=== PATIENT | male | born 1980 | race Caucasian/White ===

== ENCOUNTER 2017-08-06 18:40 | Inpatient (IN) | payer MEDICAID, OTHER ==
[~2017-08-06] VITALS: Ht 165.1 cm; Wt 74.8 kg
[~2017-08-06 18:40] MED LIST: DIVA500T52 PO; METF10002 PO; OMEP20 PO; SIMV10TA2 PO; VITAD1000 PO; ZIPR60CA2 PO
[2017-08-06] MEDS ORDERED: ChlorproMAZINE HCL 100 MG TABLET PO PRN (19:30)
[2017-08-06] MEDS ORDERED: LORazepam 2 MG TABLET PO PRN (19:30)
[2017-08-06] MEDS ORDERED: PNEUMOCOCCAL VACCINE POLYVALENT 0.5 ML VIAL [PPSV23] IM ONE (20:30)
[2017-08-06 20:39] VITALS: BP 116/80
[2017-08-06] MEDS ORDERED: INFLUENZA VIRUS VACCINE QVS 2017-18 (3YR+)/PF 60 MCG/0.5 ML SYRINGE IM ONE (20:45)
[2017-08-06 21:32] LABS: GLUCOMETER DEV NAME(LOC) BV2N3; GLUCOSE,POINT OF CARE 455 MG/DL (70-110)
[2017-08-06] MEDS: DIVALPROEX SODIUM 500 MG ER TABLET PO SCH (21:39)
[2017-08-06] MEDS ORDERED: GLUCAGON,HUMAN RECOMBINANT 1 MG VIAL IM PRN (21:45)
[2017-08-06] MEDS ORDERED: DEXTROSE 50%-WATER 25 GM/50 ML SYRINGE IVP PRN (21:45)
[2017-08-06] MEDS ORDERED: INSULIN LISPRO 100 UNITS/ML SQ PRN (21:45)
[2017-08-06] MEDS ORDERED: INSULIN LISPRO 100 UNITS/ML SQ ONE (21:45)
[2017-08-06 22:57] LABS: GLUCOMETER DEV NAME(LOC) BV2N3; GLUCOSE,POINT OF CARE 419 MG/DL (70-110)
[2017-08-07 00:01] VITALS: BP 130/70
[2017-08-07] MEDS: ZOLPIDEM TARTRATE 5 MG TABLET PO PRN ×2 (00:17→20:32)
[2017-08-07 05:47] LABS: GLUCOMETER DEV NAME(LOC) BV2N3; GLUCOSE,POINT OF CARE 265 MG/DL (70-110)
[2017-08-07] MEDS: INSULIN LISPRO 100 UNITS/ML SQ PRN ×4 (06:58→20:52)
[2017-08-07] MEDS: ZIPRASIDONE HCL 60 MG CAPSULE PO SCH ×2 (06:59→16:50)
[2017-08-07] MEDS ORDERED: MetFORMIN HCL 500 MG TABLET PO SCH (07:00)
[2017-08-07 08:03] LABS: BASOPHILS % (AUTO) 0.5 % (0.0-2.0); EOSINOPHILS % (AUTO) 0.8 % (1.0-6.0); HEMOGLOBIN 15.4 g/dL (13.5-17.5); LYMPHOCYTES # (AUTO) 2.2 K/uL (1.0-4.8); LYMPHOCYTES % (AUTO) 39.1 % (22.0-44.0); MEAN CORPUSCULAR HGB CONC 35.1 G/dL (31.0-37.0); MEAN CORPUSCULAR VOLUME 85 fL (80-100); MONOCYTES # (AUTO) 0.5 K/uL (0.1-1.0); MONOCYTES % (AUTO) 8.8 % (2.0-9.0); NEUTROPHILS # (AUTO) 2.9 K/uL (1.8-7.7); NEUTROPHILS % (AUTO) 50.8 % (40.0-70.0); PLATELET COUNT (AUTO) 181 K/uL (150-450); RED BLOOD CELL COUNT(AUTO) 5.14 MIL/uL (4.50-5.90); RED CELL DISTRIBUTION WIDTH 13.3 % (11.5-14.5)
[2017-08-07 08:11] LABS: HEMOGLOBIN A1C 10.7 % (4.5-6.2)
[2017-08-07 08:33] LABS: ALANINE AMINOTRANSFERASE 14 U/L (12-78); ALBUMIN 3.4 g/dL (3.4-5.0); ALKALINE PHOSPHATASE 61 U/L (46-116); ANION GAP 6 mmol/L (8-16); ASPARTATE AMINOTRANSFERASE 12 U/L (15-37); BILIRUBIN,TOTAL 0.4 mg/dL (0.1-1.0); CALCIUM, TOTAL 8.8 mg/dL (8.8-10.5); CARBON DIOXIDE 32 mmol/L (22-29); CHLORIDE 97 mmol/L (98-107); CHOL/HDL RATIO 4.9 (4.2-7.3); CHOLESTEROL 214 mg/dL (131-200); CREATININE 0.78 mg/dL (0.60-1.30); FREE T4 (FREE THYROXINE) 0.92 ng/dL (0.76-1.46); GLOMERULAR FILTR. RATE CALC > 60 mL/min (>60); GLUCOSE,RANDOM 374 mg/dL (70-110); HDL CHOLESTEROL 44 mg/dL (40-60); LDL CHOL (CALC.) 138 mg/dL (0-130); POTASSIUM 3.4 mmol/L (3.5-5.1); SODIUM SERUM 135 mmol/L (136-145); TOTAL PROTEIN, SERUM 7.4 g/dL (6.4-8.2); TRIGLYCERIDES 162 mg/dL (15-150); UREA NITROGEN, BLOOD 7 mg/dL (7-18)
[2017-08-07] MEDS: OMEPRAZOLE 20 MG CAPSULE PO SCH (08:55)
[2017-08-07] MEDS ORDERED: POTASSIUM CHLORIDE 20 MEQ ER TABLET PO ONE (09:00)
[2017-08-07 09:08] VITALS: BP 113/77
[2017-08-07] MEDS: OMEGA-3/DHA/EPA/FISH OIL 1,000 MG CAPSULE PO SCH (09:45)
[2017-08-07 11:22] LABS: GLUCOMETER DEV NAME(LOC) BV2N3; GLUCOSE,POINT OF CARE 270 MG/DL (70-110)
[2017-08-07 16:19] VITALS: BP 122/74
[2017-08-07 16:48] LABS: GLUCOMETER DEV NAME(LOC) BV2N3; GLUCOSE,POINT OF CARE 315 MG/DL (70-110)
[2017-08-07] MEDS: GlipiZIDE 10 MG TABLET PO SCH (16:50)
[2017-08-07] MEDS: MetFORMIN HCL 500 MG TABLET PO SCH (16:50)
[2017-08-07] MEDS: DIVALPROEX SODIUM 500 MG ER TABLET PO SCH (20:32)
[2017-08-07] MEDS: SIMVASTATIN 10 MG TABLET PO SCH (20:40)
[2017-08-07] MEDS: INSULIN GLARGINE,HUM.REC.ANLOG 100 UNITS/ML SQ SCH (20:51)
[2017-08-07 21:12] LABS: GLUCOMETER DEV NAME(LOC) BV2N3; GLUCOSE,POINT OF CARE 221 MG/DL (70-110)
[2017-08-08 04:38] VITALS: BP 116/78
[2017-08-08] MEDS: INSULIN LISPRO 100 UNITS/ML SQ PRN ×4 (06:20→21:10)
[2017-08-08] MEDS: MetFORMIN HCL 500 MG TABLET PO SCH ×2 (06:43→17:06)
[2017-08-08] MEDS: ZIPRASIDONE HCL 60 MG CAPSULE PO SCH ×2 (06:44→17:06)
[2017-08-08] MEDS: GlipiZIDE 10 MG TABLET PO SCH ×2 (06:44→16:29)
[2017-08-08 08:18] VITALS: BP 112/73
[2017-08-08 08:22] VITALS: BP 112/73
[2017-08-08] MEDS: OMEGA-3/DHA/EPA/FISH OIL 1,000 MG CAPSULE PO SCH (08:52)
[2017-08-08] MEDS: OMEPRAZOLE 20 MG CAPSULE PO SCH (08:52)
[2017-08-08 09:00] LABS: POTASSIUM 3.8 mmol/L (3.5-5.1)
[2017-08-08] MEDS ORDERED: BENZOCAINE/MENTHOL LOZENGE MM PRN (09:30)
[2017-08-08] MEDS ORDERED: ONDANSETRON HCL 4 MG TABLET PO PRN (09:30)
[2017-08-08] MEDS ORDERED: CloNIDine HCL 0.1 MG TABLET PO PRN (09:30)
[2017-08-08] MEDS ORDERED: ALBUTEROL SULFATE HFA 90 MCG/PUFF 8 GM INHALER IH PRN (09:30)
[2017-08-08] MEDS ORDERED: LOPERAMIDE HCL 2 MG CAPSULE PO PRN (09:30)
[2017-08-08] MEDS ORDERED: MAG HYDROX/AL HYDROX/SIMETH ES 30 ML SUSPENSION UDCUP PO PRN (09:30)
[2017-08-08] MEDS ORDERED: PETROLATUM,WHITE 71 GM JELLY TP PRN (09:30)
[2017-08-08] MEDS ORDERED: BACITRACIN 28.4 GM OINTMENT TP PRN (09:30)
[2017-08-08] MEDS ORDERED: MAGNESIUM HYDROXIDE SUSPENSION 30 ML UDCUP PO PRN (09:30)
[2017-08-08] MEDS ORDERED: IBUPROFEN 600 MG TABLET PO PRN (09:30)
[2017-08-08] MEDS ORDERED: ACETAMINOPHEN 325 MG TABLET PO PRN (09:30)
[2017-08-08 15:13] LABS: GLUCOMETER DEV NAME(LOC) BV2N3; GLUCOSE,POINT OF CARE 253 MG/DL (70-110)
[2017-08-08 16:08] VITALS: BP 120/81
[2017-08-08 16:27] LABS: GLUCOMETER DEV NAME(LOC) BV2N3; GLUCOSE,POINT OF CARE 252 MG/DL (70-110)
[2017-08-08] MEDS: SIMVASTATIN 10 MG TABLET PO SCH (20:30)
[2017-08-08] MEDS: DIVALPROEX SODIUM 500 MG ER TABLET PO SCH (20:30)
[2017-08-08 20:51] LABS: GLUCOMETER DEV NAME(LOC) BV2N3; GLUCOSE,POINT OF CARE 212 MG/DL (70-110)
[2017-08-08] MEDS: INSULIN GLARGINE,HUM.REC.ANLOG 100 UNITS/ML SQ SCH (21:11)
[2017-08-08] MEDS: ZOLPIDEM TARTRATE 5 MG TABLET PO PRN (21:27)
[2017-08-09 05:17] VITALS: BP 130/86
[2017-08-09] MEDS: GlipiZIDE 10 MG TABLET PO SCH ×2 (05:27→17:00)
[2017-08-09 05:48] LABS: GLUCOMETER DEV NAME(LOC) BV2N3; GLUCOSE,POINT OF CARE 161 MG/DL (70-110)
[2017-08-09] MEDS: INSULIN LISPRO 100 UNITS/ML SQ PRN ×4 (06:42→21:00)
[2017-08-09] MEDS: ZIPRASIDONE HCL 60 MG CAPSULE PO SCH ×2 (06:45→17:00)
[2017-08-09] MEDS: MetFORMIN HCL 500 MG TABLET PO SCH ×2 (06:45→17:00)
[2017-08-09 08:27] VITALS: BP 109/70
[2017-08-09] MEDS ORDERED: FluPHENAZine DECANOATE 25 MG/ML IM SCH (09:00)
[2017-08-09] MEDS: OMEGA-3/DHA/EPA/FISH OIL 1,000 MG CAPSULE PO SCH (09:41)
[2017-08-09] MEDS: OMEPRAZOLE 20 MG CAPSULE PO SCH (09:41)
[2017-08-09] MEDS: DOCUSATE SODIUM 100 MG CAPSULE PO SCH (09:41)
[2017-08-09 11:33] LABS: GLUCOMETER DEV NAME(LOC) BV2N3; GLUCOSE,POINT OF CARE 167 MG/DL (70-110)
[2017-08-09 16:36] VITALS: BP 113/65
[2017-08-09 17:06] LABS: GLUCOMETER DEV NAME(LOC) BV2N3; GLUCOSE,POINT OF CARE 239 MG/DL (70-110)
[2017-08-09 20:42] LABS: GLUCOMETER DEV NAME(LOC) BV2N3; GLUCOSE,POINT OF CARE 212 MG/DL (70-110)
[2017-08-09] MEDS: SIMVASTATIN 10 MG TABLET PO SCH (20:56)
[2017-08-09] MEDS: DIVALPROEX SODIUM 500 MG ER TABLET PO SCH (20:57)
[2017-08-09] MEDS: ZOLPIDEM TARTRATE 5 MG TABLET PO PRN (20:57)
[2017-08-09] MEDS: INSULIN GLARGINE,HUM.REC.ANLOG 100 UNITS/ML SQ SCH (21:00)
[2017-08-10 06:12] LABS: GLUCOMETER DEV NAME(LOC) BV2N3; GLUCOSE,POINT OF CARE 115 MG/DL (70-110)
[2017-08-10 06:24] VITALS: BP 110/69
[2017-08-10] MEDS: GlipiZIDE 10 MG TABLET PO SCH ×2 (06:48→16:08)
[2017-08-10] MEDS: ZIPRASIDONE HCL 60 MG CAPSULE PO SCH ×2 (06:48→16:08)
[2017-08-10] MEDS: MetFORMIN HCL 500 MG TABLET PO SCH ×2 (06:48→16:08)
[2017-08-10 08:19] VITALS: BP 116/82
[2017-08-10] MEDS: DOCUSATE SODIUM 100 MG CAPSULE PO SCH (09:29)
[2017-08-10] MEDS: OMEGA-3/DHA/EPA/FISH OIL 1,000 MG CAPSULE PO SCH (09:29)
[2017-08-10] MEDS: OMEPRAZOLE 20 MG CAPSULE PO SCH (09:29)
[2017-08-10 11:27] LABS: GLUCOMETER DEV NAME(LOC) BV2N3; GLUCOSE,POINT OF CARE 124 MG/DL (70-110)
[2017-08-10 16:26] VITALS: BP 116/65
[2017-08-10 16:52] LABS: GLUCOMETER DEV NAME(LOC) BV2N3; GLUCOSE,POINT OF CARE 194 MG/DL (70-110)
[2017-08-10] MEDS: INSULIN LISPRO 100 UNITS/ML SQ PRN ×2 (17:04→20:27)
[2017-08-10] MEDS: DIVALPROEX SODIUM 500 MG ER TABLET PO SCH (20:13)
[2017-08-10] MEDS: SIMVASTATIN 10 MG TABLET PO SCH (20:13)
[2017-08-10 20:33] LABS: GLUCOMETER DEV NAME(LOC) BV2N3; GLUCOSE,POINT OF CARE 148 MG/DL (70-110)
[2017-08-10] MEDS: INSULIN GLARGINE,HUM.REC.ANLOG 100 UNITS/ML SQ SCH (21:03)
[2017-08-11 03:45] VITALS: BP 114/69
[2017-08-11 06:08] LABS: GLUCOMETER DEV NAME(LOC) BV2N3; GLUCOSE,POINT OF CARE 225 MG/DL (70-110)
[2017-08-11] MEDS: MetFORMIN HCL 500 MG TABLET PO SCH (06:49)
[2017-08-11] MEDS: GlipiZIDE 10 MG TABLET PO SCH (06:49)
[2017-08-11] MEDS: INSULIN LISPRO 100 UNITS/ML SQ PRN (06:50)
[2017-08-11] MEDS: OMEGA-3/DHA/EPA/FISH OIL 1,000 MG CAPSULE PO SCH (08:03)
[2017-08-11] MEDS: OMEPRAZOLE 20 MG CAPSULE PO SCH (08:03)
[2017-08-11] MEDS: DOCUSATE SODIUM 100 MG CAPSULE PO SCH (08:03)
[2017-08-11 08:04] VITALS: BP 119/77
[2017-08-11] MEDS ORDERED: INSLAN SQ (08:17)
[2017-08-11] MEDS ORDERED: GLIP10 PO (08:17)
[2017-08-11] MEDS ORDERED: DIVA500T52 PO (08:17)
[2017-08-11] MEDS ORDERED: METF500T4 PO (08:18)
[2017-08-11] MEDS ORDERED: OMEG-135 PO (08:18)
[2017-08-11 08:31] LABS: BASOPHILS % (AUTO) 0.3 % (0.0-2.0); EOSINOPHILS % (AUTO) 0.3 % (1.0-6.0); HEMOGLOBIN 15.7 g/dL (13.5-17.5); LYMPHOCYTES # (AUTO) 2.4 K/uL (1.0-4.8); LYMPHOCYTES % (AUTO) 33.3 % (22.0-44.0); MEAN CORPUSCULAR HEMOGLOBIN 30.5 pg (26.0-34.0); MEAN CORPUSCULAR HGB CONC 35.7 G/dL (31.0-37.0); MEAN CORPUSCULAR VOLUME 86 fL (80-100); MONOCYTES # (AUTO) 0.4 K/uL (0.1-1.0); MONOCYTES % (AUTO) 5.7 % (2.0-9.0); NEUTROPHILS # (AUTO) 4.3 K/uL (1.8-7.7); NEUTROPHILS % (AUTO) 60.4 % (40.0-70.0); PLATELET COUNT (AUTO) 206 K/uL (150-450); RED BLOOD CELL COUNT(AUTO) 5.14 MIL/uL (4.50-5.90); RED CELL DISTRIBUTION WIDTH 12.9 % (11.5-14.5)
[2017-08-11 08:33] LABS: HEMATOCRIT 45.9 % (41-53)
[2017-08-11 09:30] LABS: ALBUMIN 3.5 g/dL (3.4-5.0); BILIRUBIN,TOTAL 0.4 mg/dL (0.1-1.0); TOTAL PROTEIN, SERUM 7.3 g/dL (6.4-8.2)
[2017-08-11 09:31] LABS: BILIRUBIN,DIRECT 0.2 mg/dL (0.00-0.20)
== END 2017-08-11 10:30 | disposition home or self-care (01) | DRG 750 ==
LOC: B2S 18:40
PROVIDERS: ADMIT Psychiatry & Neurology Psychiatry; ATTEND Psychiatry & Neurology Psychiatry
DX: F20.0 Paranoid schizophrenia (principal); F72 Severe intellectual disabilities; E11.65 Type 2 diabetes mellitus with hyperglycemia; F15.20 Other stimulant dependence, uncomplicated; E87.1 Hypo-osmolality and hyponatremia; G40.909 Epilepsy, unspecified, not intractable, without status epilepticus; K21.9 Gastro-esophageal reflux disease without esophagitis; E78.1 Pure hyperglyceridemia; E78.5 Hyperlipidemia, unspecified; E87.6 Hypokalemia; G47.00 Insomnia, unspecified; F12.10 Cannabis abuse, uncomplicated; Z28.21 Immunization not carried out because of patient refusal; Z91.14 Patient's other noncompliance with medication regimen; Z91.19 Patient's noncompliance with other medical treatment and regimen; Z98.2 Presence of cerebrospinal fluid drainage device; Z56.0 Unemployment, unspecified; Z79.899 Other long term (current) drug therapy; Z82.49 Family history of ischemic heart disease and other diseases of the circulatory system; Z83.3 Family history of diabetes mellitus
CPT/HCPCS: 82962; 83036; 84132; 84295; 84439; 84443; J1815; J2680

== ENCOUNTER 2018-01-19 11:00 | Inpatient (IN) | payer MEDICAID ==
[~2018-01-19] VITALS: Ht 165.1 cm; Wt 85.3 kg
[~2018-01-19 11:00] MED LIST changes: +GLIP10 PO; +INSLAN SQ; +METF-960 PO; -METF10002 PO; +OMEG-135 PO; -OMEP20 PO; -VITAD1000 PO; -ZIPR60CA2 PO
[2018-01-19 11:46] VITALS: BP 139/92
[2018-01-19] MEDS ORDERED: ChlorproMAZINE HCL 100 MG TABLET PO PRN (12:00)
[2018-01-19] MEDS ORDERED: PNEUMOCOCCAL VACCINE POLYVALENT 0.5 ML VIAL [PPSV23] IM ONE (14:00)
[2018-01-19] MEDS: INSULIN LISPRO 100 UNITS/ML SQ PRN ×4 (14:44→21:00)
[2018-01-19] MEDS ORDERED: GLUCAGON,HUMAN RECOMBINANT 1 MG VIAL IM PRN (14:45)
[2018-01-19] MEDS ORDERED: HydrOXYzine PAMOATE 50 MG CAPSULE PO PRN (15:00)
[2018-01-19] MEDS ORDERED: MAG HYDROX/AL HYDROX/SIMETH ES 30 ML SUSPENSION UDCUP PO PRN (15:00)
[2018-01-19] MEDS ORDERED: TUBERCULIN, PURIFIED PROTEIN DERIVATIVE 5 TU/0.1 ML SYG ID ONE (15:00)
[2018-01-19] MEDS ORDERED: PROMETHAZINE HCL 25 MG TABLET PO PRN (15:00)
[2018-01-19] MEDS ORDERED: MAGNESIUM HYDROXIDE SUSPENSION 30 ML UDCUP PO PRN (15:00)
[2018-01-19] MEDS ORDERED: GuaiFENesin/D-METHORPHAN [SUGAR-FREE] 200-20MG/10 ML SYRUP UDCUP PO PRN (15:00)
[2018-01-19] MEDS ORDERED: ACETAMINOPHEN 325 MG TABLET PO PRN (15:00)
[2018-01-19] MEDS ORDERED: LOPERAMIDE HCL 2 MG CAPSULE PO PRN (15:00)
[2018-01-19 16:00] VITALS: BP 140/88
[2018-01-19] MEDS: THIAMINE HCL 100 MG TABLET PO SCH (16:44)
[2018-01-19] MEDS: MetFORMIN HCL 500 MG TABLET PO SCH (16:44)
[2018-01-19] MEDS: LORazepam 2 MG TABLET PO PRN (16:44)
[2018-01-19] MEDS: GlipiZIDE 10 MG TABLET PO SCH (16:44)
[2018-01-19] MEDS: DiphenhydrAMINE HCL 25 MG CAPSULE PO SCH (20:47)
[2018-01-19] MEDS: DIVALPROEX SODIUM 500 MG ER TABLET PO SCH (20:48)
[2018-01-19] MEDS: FluPHENAZine HCL 5 MG TABLET PO SCH (20:48)
[2018-01-19] MEDS ORDERED: DIVALPROEX SODIUM 500 MG ER TABLET PO SCH (21:00)
[2018-01-19] MEDS: INSULIN GLARGINE,HUM.REC.ANLOG 100 UNITS/ML SQ SCH (21:00)
[2018-01-19] MEDS ORDERED: IBUPROFEN 600 MG TABLET PO PRN (21:15)
[2018-01-19] MEDS ORDERED: ONDANSETRON HCL 4 MG TABLET PO PRN (21:15)
[2018-01-19] MEDS ORDERED: CloNIDine HCL 0.1 MG TABLET PO PRN (21:15)
[2018-01-19] MEDS ORDERED: BENZOCAINE/MENTHOL LOZENGE MM PRN (21:15)
[2018-01-19] MEDS ORDERED: BACITRACIN 28.4 GM OINTMENT TP PRN (21:15)
[2018-01-19] MEDS ORDERED: PETROLATUM,WHITE 71 GM JELLY TP PRN (21:15)
[2018-01-19] MEDS ORDERED: ALBUTEROL SULFATE HFA 90 MCG/PUFF 8 GM INHALER IH PRN (21:15)
[2018-01-20 04:45] LABS: GLUCOMETER DEV NAME(LOC) BV3N5; GLUCOSE,POINT OF CARE 325 MG/DL (70-110)
[2018-01-20 06:00] LABS: GLUCOMETER DEV NAME(LOC) BV3N5; GLUCOSE,POINT OF CARE 260 MG/DL (70-110)
[2018-01-20 06:24] VITALS: BP 136/81
[2018-01-20] MEDS: GlipiZIDE 10 MG TABLET PO SCH ×2 (06:40→16:08)
[2018-01-20] MEDS: MetFORMIN HCL 500 MG TABLET PO SCH ×2 (06:40→16:49)
[2018-01-20] MEDS: INSULIN LISPRO 100 UNITS/ML SQ PRN ×3 (06:41→21:01)
[2018-01-20 08:05] VITALS: BP 125/77
[2018-01-20] MEDS: FOLIC ACID 1 MG TABLET PO SCH (08:14)
[2018-01-20] MEDS: MULTIVITAMINS WITH MINERALS, THERAPEUTIC TABLET PO SCH (08:14)
[2018-01-20] MEDS: THIAMINE HCL 100 MG TABLET PO SCH ×2 (08:14→16:08)
[2018-01-20 08:31] LABS: BASOPHILS % (AUTO) 0.7 % (0.0-2.0); EOSINOPHILS % (AUTO) 1.9 % (1.0-6.0); HEMATOCRIT 45.2 % (41-53); LYMPHOCYTES # (AUTO) 2.6 K/uL (1.0-4.8); MEAN CORPUSCULAR HEMOGLOBIN 29.8 pg (26.0-34.0); MEAN CORPUSCULAR HGB CONC 35.5 G/dL (31.0-37.0); MEAN CORPUSCULAR VOLUME 84 fL (80-100); MONOCYTES # (AUTO) 0.4 K/uL (0.1-1.0); MONOCYTES % (AUTO) 7.7 % (2.0-9.0); NEUTROPHILS # (AUTO) 2.3 K/uL (1.8-7.7); NEUTROPHILS % (AUTO) 42.7 % (40.0-70.0); PLATELET COUNT (AUTO) 220 K/uL (150-450); RED BLOOD CELL COUNT(AUTO) 5.37 MIL/uL (4.50-5.90); RED CELL DISTRIBUTION WIDTH 13.2 % (11.5-14.5)
[2018-01-20 08:44] LABS: HEMOGLOBIN A1C 8.5 % (4.5-6.2)
[2018-01-20 09:01] LABS: ALANINE AMINOTRANSFERASE 22 U/L (12-78); ALBUMIN 3.1 g/dL (3.4-5.0); ALKALINE PHOSPHATASE 49 U/L (46-116); ANION GAP 5 mmol/L (8-16); ASPARTATE AMINOTRANSFERASE 14 U/L (15-37); BILIRUBIN,TOTAL 0.3 mg/dL (0.1-1.0); CALCIUM, TOTAL 8.7 mg/dL (8.8-10.5); CARBON DIOXIDE 31 mmol/L (22-29); CHLORIDE 103 mmol/L (98-107); CHOL/HDL RATIO 4.3 (4.2-7.3); CHOLESTEROL 195 mg/dL (131-200); CREATININE 0.68 mg/dL (0.60-1.30); GLOMERULAR FILTR. RATE CALC > 60 mL/min (>60); GLUCOSE,RANDOM 226 mg/dL (70-110); HDL CHOLESTEROL 45 mg/dL (40-60); LDL CHOL (CALC.) 121 mg/dL (0-130); POTASSIUM 3.5 mmol/L (3.5-5.1); SODIUM SERUM 139 mmol/L (136-145); THYROID STIMULATING HORMONE 3.64 uIU/mL (0.36-3.74); TOTAL PROTEIN, SERUM 7.2 g/dL (6.4-8.2); TRIGLYCERIDES 147 mg/dL (15-150); UREA NITROGEN, BLOOD 9 mg/dL (7-18); VALPROIC ACID 58 mcg/mL (50-100)
[2018-01-20 09:07] LABS: AMPHET/METH SCREEN,URINE NEGATIVE (NEGATIVE); BARBITURATE SCREEN, URINE NEGATIVE (NEGATIVE); BENZODIAZEPINES SCREEN,URINE NEGATIVE (NEGATIVE); CANNABINOID SCREEN,URINE NEGATIVE (NEGATIVE); COCAINE SCREEN,URINE NEGATIVE (NEGATIVE); METHADONE SCREEN, URINE NEGATIVE (NEGATIVE); OPIATE SCREEN,URINE NEGATIVE (NEGATIVE)
[2018-01-20 09:09] LABS: PHENCYCLIDINE SCREEN,URINE NEGATIVE (NEGATIVE)
[2018-01-20 09:16] LABS: APPEARANCE,URINE CLEAR (CLEAR); BILIRUBIN,URINE NEGATIVE (NEGATIVE); GLUCOSE, URINE (UA) >=1000 mg/dL (NEGATIVE); KETONES,URINE 15 mg/dL (NEGATIVE); LEUKOCYTE ESTERASE ,URINE NEGATIVE (NEGATIVE); NITRATE,URINE NEGATIVE (NEGATIVE); OCCULT BLOOD,URINE NEGATIVE (NEGATIVE); PH,URINE 6.5 (5.0-8.0); PROTEIN,URINE POS 1+ (NEGATIVE)
[2018-01-20 09:30] LABS: BACTERIA,URINE Rare /HPF (None Seen); RBC,URINE None Seen /HPF (0-2); SQUAMOUS EPITHELIAL CELL,UR Few /LPF (None Seen); WBC,URINE 0-2 /HPF (0-5)
[2018-01-20] MEDS: LORazepam 2 MG TABLET PO PRN ×2 (10:06→16:48)
[2018-01-20 13:25] LABS: GLUCOMETER DEV NAME(LOC) BV3N5; GLUCOSE,POINT OF CARE 242 MG/DL (70-110)
[2018-01-20 16:00] VITALS: BP 111/66
[2018-01-20] MEDS: DiphenhydrAMINE HCL 25 MG CAPSULE PO SCH (20:33)
[2018-01-20] MEDS: DIVALPROEX SODIUM 500 MG ER TABLET PO SCH (20:33)
[2018-01-20] MEDS: FluPHENAZine HCL 5 MG TABLET PO SCH (20:33)
[2018-01-20] MEDS: INSULIN GLARGINE,HUM.REC.ANLOG 100 UNITS/ML SQ SCH (21:03)
[2018-01-21 01:40] LABS: GLUCOMETER DEV NAME(LOC) BV3N5; GLUCOSE,POINT OF CARE 244 MG/DL (70-110)
[2018-01-21 06:11] VITALS: BP 146/86
[2018-01-21] MEDS: GlipiZIDE 10 MG TABLET PO SCH ×2 (06:13→16:54)
[2018-01-21] MEDS: MetFORMIN HCL 500 MG TABLET PO SCH ×2 (06:13→16:48)
[2018-01-21] MEDS: INSULIN LISPRO 100 UNITS/ML SQ PRN ×4 (06:35→20:50)
[2018-01-21 08:05] VITALS: BP 136/84
[2018-01-21] MEDS: MULTIVITAMINS WITH MINERALS, THERAPEUTIC TABLET PO SCH (08:16)
[2018-01-21] MEDS: THIAMINE HCL 100 MG TABLET PO SCH ×2 (08:16→16:48)
[2018-01-21] MEDS: FOLIC ACID 1 MG TABLET PO SCH (08:16)
[2018-01-21 10:58] LABS: GLUCOMETER DEV NAME(LOC) BV3N5; GLUCOSE,POINT OF CARE 132 MG/DL (70-110)
[2018-01-21 15:05] VITALS: BP 129/79
[2018-01-21 15:57] LABS: GLUCOMETER DEV NAME(LOC) BV3N5; GLUCOSE,POINT OF CARE 307 MG/DL (70-110)
[2018-01-21 16:19] LABS: GLUCOMETER DEV NAME(LOC) BV3N5; GLUCOSE,POINT OF CARE 203 MG/DL (70-110)
[2018-01-21 16:43] LABS: GLUCOMETER DEV NAME(LOC) BV3N5; GLUCOSE,POINT OF CARE 177 MG/DL (70-110)
[2018-01-21 16:44] LABS: GLUCOMETER DEV NAME(LOC) BV3N5; GLUCOSE,POINT OF CARE 175 MG/DL (70-110)
[2018-01-21] MEDS: LORazepam 2 MG TABLET PO PRN (16:48)
[2018-01-21 17:35] LABS: GLUCOMETER DEV NAME(LOC) BV3N5; GLUCOSE,POINT OF CARE 217 MG/DL (70-110)
[2018-01-21 17:44] VITALS: BP 129/79
[2018-01-21] MEDS: DIVALPROEX SODIUM 500 MG ER TABLET PO SCH (20:20)
[2018-01-21] MEDS: FluPHENAZine HCL 5 MG TABLET PO SCH (20:20)
[2018-01-21] MEDS: DiphenhydrAMINE HCL 25 MG CAPSULE PO SCH (20:20)
[2018-01-21] MEDS: INSULIN GLARGINE,HUM.REC.ANLOG 100 UNITS/ML SQ SCH (20:50)
[2018-01-21] MEDS: ZOLPIDEM TARTRATE 10 MG TABLET PO PRN (21:10)
[2018-01-21 21:24] LABS: GLUCOMETER DEV NAME(LOC) BV3N5; GLUCOSE,POINT OF CARE 167 MG/DL (70-110)
[2018-01-22 02:59] VITALS: BP 124/72
[2018-01-22 06:24] LABS: GLUCOMETER DEV NAME(LOC) BV3N5; GLUCOSE,POINT OF CARE 153 MG/DL (70-110)
[2018-01-22] MEDS: MetFORMIN HCL 500 MG TABLET PO SCH ×2 (06:27→16:47)
[2018-01-22] MEDS: GlipiZIDE 10 MG TABLET PO SCH ×2 (06:27→16:49)
[2018-01-22] MEDS: INSULIN LISPRO 100 UNITS/ML SQ PRN ×4 (06:47→21:18)
[2018-01-22 08:04] VITALS: BP 119/85
[2018-01-22] MEDS: MULTIVITAMINS WITH MINERALS, THERAPEUTIC TABLET PO SCH (08:17)
[2018-01-22] MEDS: THIAMINE HCL 100 MG TABLET PO SCH ×2 (08:17→17:57)
[2018-01-22] MEDS: FOLIC ACID 1 MG TABLET PO SCH (08:17)
[2018-01-22 11:59] LABS: GLUCOMETER DEV NAME(LOC) BV3N5; GLUCOSE,POINT OF CARE 194 MG/DL (70-110)
[2018-01-22] MEDS ORDERED: BENZTROPINE MESYLATE 2 MG TABLET PO ONE (14:30)
[2018-01-22 16:00] VITALS: BP 135/87
[2018-01-22] MEDS: BENZTROPINE MESYLATE 2 MG TABLET PO SCH (16:48)
[2018-01-22 16:54] LABS: GLUCOMETER DEV NAME(LOC) BV3N5; GLUCOSE,POINT OF CARE 205 MG/DL (70-110)
[2018-01-22 20:09] LABS: GLUCOMETER DEV NAME(LOC) BV3N5; GLUCOSE,POINT OF CARE 180 MG/DL (70-110)
[2018-01-22] MEDS: DIVALPROEX SODIUM 500 MG ER TABLET PO SCH (20:15)
[2018-01-22] MEDS: FluPHENAZine HCL 5 MG TABLET PO SCH (20:15)
[2018-01-22] MEDS: DiphenhydrAMINE HCL 25 MG CAPSULE PO SCH (20:15)
[2018-01-22] MEDS: INSULIN GLARGINE,HUM.REC.ANLOG 100 UNITS/ML SQ SCH (20:51)
[2018-01-22] MEDS ORDERED: DIVALPROEX SODIUM 250 MG ER TABLET PO SCH (21:00)
[2018-01-23 01:42] VITALS: BP 106/66
[2018-01-23 06:10] LABS: GLUCOMETER DEV NAME(LOC) BV3N5; GLUCOSE,POINT OF CARE 165 MG/DL (70-110)
[2018-01-23] MEDS: GlipiZIDE 10 MG TABLET PO SCH ×2 (06:10→16:36)
[2018-01-23] MEDS: MetFORMIN HCL 500 MG TABLET PO SCH ×2 (06:11→16:36)
[2018-01-23] MEDS: INSULIN LISPRO 100 UNITS/ML SQ PRN ×3 (06:36→21:00)
[2018-01-23] MEDS: MULTIVITAMINS WITH MINERALS, THERAPEUTIC TABLET PO SCH (08:03)
[2018-01-23] MEDS: FOLIC ACID 1 MG TABLET PO SCH (08:03)
[2018-01-23] MEDS: THIAMINE HCL 100 MG TABLET PO SCH ×2 (08:03→16:36)
[2018-01-23] MEDS: BENZTROPINE MESYLATE 2 MG TABLET PO SCH ×2 (08:04→16:36)
[2018-01-23 08:05] VITALS: BP 128/74
[2018-01-23 11:49] LABS: GLUCOMETER DEV NAME(LOC) BV3N5; GLUCOSE,POINT OF CARE 120 MG/DL (70-110)
[2018-01-23 16:00] VITALS: BP 136/88
[2018-01-23] MEDS: LORazepam 2 MG TABLET PO PRN (16:36)
[2018-01-23 16:54] LABS: GLUCOMETER DEV NAME(LOC) BV3N5; GLUCOSE,POINT OF CARE 253 MG/DL (70-110)
[2018-01-23] MEDS: DiphenhydrAMINE HCL 25 MG CAPSULE PO SCH (20:54)
[2018-01-23] MEDS: DIVALPROEX SODIUM 500 MG ER TABLET PO SCH (20:55)
[2018-01-23] MEDS: FluPHENAZine HCL 5 MG TABLET PO SCH (20:55)
[2018-01-23] MEDS ORDERED: BENZTROPINE MESYLATE 1 MG TABLET PO SCH (21:00)
[2018-01-23] MEDS: INSULIN GLARGINE,HUM.REC.ANLOG 100 UNITS/ML SQ SCH (21:00)
[2018-01-23 21:08] LABS: GLUCOMETER DEV NAME(LOC) BV3N5; GLUCOSE,POINT OF CARE 145 MG/DL (70-110)
[2018-01-24] MEDS: GlipiZIDE 10 MG TABLET PO SCH ×2 (06:55→16:22)
[2018-01-24] MEDS: MetFORMIN HCL 500 MG TABLET PO SCH ×2 (06:56→16:22)
[2018-01-24] MEDS: INSULIN LISPRO 100 UNITS/ML SQ PRN ×3 (06:57→21:19)
[2018-01-24 07:03] VITALS: BP 120/82
[2018-01-24 07:20] LABS: GLUCOMETER DEV NAME(LOC) BV3N5; GLUCOSE,POINT OF CARE 142 MG/DL (70-110)
[2018-01-24 08:05] VITALS: BP 126/80
[2018-01-24] MEDS: DIVALPROEX SODIUM 500 MG ER TABLET PO SCH ×2 (08:06→21:33)
[2018-01-24] MEDS: MULTIVITAMINS WITH MINERALS, THERAPEUTIC TABLET PO SCH (08:06)
[2018-01-24] MEDS: FOLIC ACID 1 MG TABLET PO SCH (08:06)
[2018-01-24] MEDS: THIAMINE HCL 100 MG TABLET PO SCH ×2 (08:06→16:22)
[2018-01-24 11:23] LABS: GLUCOMETER DEV NAME(LOC) BV3N5; GLUCOSE,POINT OF CARE 107 MG/DL (70-110)
[2018-01-24 16:00] VITALS: BP 115/82
[2018-01-24] MEDS: BENZTROPINE MESYLATE 1 MG TABLET PO SCH (16:22)
[2018-01-24] MEDS: LORazepam 2 MG TABLET PO PRN ×2 (16:22→21:16)
[2018-01-24 17:29] LABS: GLUCOMETER DEV NAME(LOC) BV3N5; GLUCOSE,POINT OF CARE 142 MG/DL (70-110)
[2018-01-24] MEDS: DiphenhydrAMINE HCL 25 MG CAPSULE PO SCH (21:16)
[2018-01-24] MEDS: ZOLPIDEM TARTRATE 10 MG TABLET PO PRN (21:16)
[2018-01-24] MEDS: FluPHENAZine HCL 10 MG TABLET PO SCH (21:16)
[2018-01-24] MEDS: INSULIN GLARGINE,HUM.REC.ANLOG 100 UNITS/ML SQ SCH (21:19)
[2018-01-24 21:59] LABS: GLUCOMETER DEV NAME(LOC) BV3N5; GLUCOSE,POINT OF CARE 200 MG/DL (70-110)
[2018-01-25 06:29] VITALS: BP 110/65
[2018-01-25 06:49] LABS: GLUCOMETER DEV NAME(LOC) BV3N5; GLUCOSE,POINT OF CARE 140 MG/DL (70-110)
[2018-01-25] MEDS: MetFORMIN HCL 500 MG TABLET PO SCH ×2 (07:05→17:05)
[2018-01-25] MEDS: GlipiZIDE 10 MG TABLET PO SCH ×2 (07:05→17:05)
[2018-01-25 08:05] VITALS: BP 114/71
[2018-01-25] MEDS: BENZTROPINE MESYLATE 1 MG TABLET PO SCH ×2 (08:13→17:05)
[2018-01-25] MEDS: FOLIC ACID 1 MG TABLET PO SCH (08:13)
[2018-01-25] MEDS: THIAMINE HCL 100 MG TABLET PO SCH ×2 (08:13→17:05)
[2018-01-25] MEDS: DIVALPROEX SODIUM 500 MG ER TABLET PO SCH ×3 (08:13→17:05)
[2018-01-25] MEDS: MULTIVITAMINS WITH MINERALS, THERAPEUTIC TABLET PO SCH (08:13)
[2018-01-25] MEDS: LORazepam 2 MG TABLET PO PRN ×2 (08:58→17:05)
[2018-01-25] MEDS: INSULIN LISPRO 100 UNITS/ML SQ PRN ×3 (11:39→21:55)
[2018-01-25 14:39] LABS: GLUCOMETER DEV NAME(LOC) BV2S 2; GLUCOSE,POINT OF CARE 201 MG/DL (70-110)
[2018-01-25] MEDS ORDERED: DIVA500T52 PO (15:25)
[2018-01-25] MEDS ORDERED: DIPH25 PO (15:25)
[2018-01-25] MEDS ORDERED: FLUP10 PO (15:25)
[2018-01-25] MEDS ORDERED: BENZ1TAB10 PO (15:25)
[2018-01-25 19:16] VITALS: BP 123/78
[2018-01-25] MEDS: FluPHENAZine HCL 10 MG TABLET PO SCH (21:52)
[2018-01-25] MEDS: DiphenhydrAMINE HCL 25 MG CAPSULE PO SCH (21:52)
[2018-01-25] MEDS: INSULIN GLARGINE,HUM.REC.ANLOG 100 UNITS/ML SQ SCH (21:55)
[2018-01-25 22:04] LABS: GLUCOMETER DEV NAME(LOC) BV2S 2; GLUCOSE,POINT OF CARE 239 MG/DL (70-110)
[2018-01-25 22:04] LABS: GLUCOMETER DEV NAME(LOC) BV2S 2; GLUCOSE,POINT OF CARE 156 MG/DL (70-110)
[2018-01-26 06:04] VITALS: BP 117/74
[2018-01-26] MEDS: GlipiZIDE 10 MG TABLET PO SCH (07:15)
[2018-01-26] MEDS: MetFORMIN HCL 500 MG TABLET PO SCH (07:15)
[2018-01-26 07:28] LABS: GLUCOMETER DEV NAME(LOC) BV2S 2; GLUCOSE,POINT OF CARE 120 MG/DL (70-110)
[2018-01-26] MEDS: DIVALPROEX SODIUM 500 MG ER TABLET PO SCH ×2 (08:10→12:24)
[2018-01-26] MEDS: THIAMINE HCL 100 MG TABLET PO SCH (08:10)
[2018-01-26] MEDS: FOLIC ACID 1 MG TABLET PO SCH (08:10)
[2018-01-26] MEDS: BENZTROPINE MESYLATE 1 MG TABLET PO SCH (08:10)
[2018-01-26 08:42] VITALS: BP 110/60
[2018-01-26] MEDS: MULTIVITAMINS WITH MINERALS, THERAPEUTIC TABLET PO SCH (09:52)
[2018-01-26 11:40] LABS: GLUCOMETER DEV NAME(LOC) BV2S 2; GLUCOSE,POINT OF CARE 136 MG/DL (70-110)
== END 2018-01-26 13:10 | disposition home or self-care (01) | DRG 750 ==
LOC: B3A 12:07 → B2S 01-25 09:45
PROVIDERS: ADMIT Psychiatry & Neurology Psychiatry; ATTEND Psychiatry & Neurology Psychiatry
DX: F20.0 Paranoid schizophrenia (principal); E11.65 Type 2 diabetes mellitus with hyperglycemia; F70 Mild intellectual disabilities; E78.5 Hyperlipidemia, unspecified; G40.909 Epilepsy, unspecified, not intractable, without status epilepticus; G47.00 Insomnia, unspecified; F41.9 Anxiety disorder, unspecified; Z91.19 Patient's noncompliance with other medical treatment and regimen; Z98.2 Presence of cerebrospinal fluid drainage device; Z79.4 Long term (current) use of insulin; Z79.899 Other long term (current) drug therapy
CPT/HCPCS: 80307; 83036; 84439; 84443; 90732; J1815